=== PATIENT | female | born 1995 | race African-American/Black ===

== ENCOUNTER 2016-12-28 03:57 | Outpatient (CLI) | payer OTHER, MEDICAID | END 2016-12-28 03:58 | disposition critical access hospital (66) | LOC: EMS 03:57 | PROVIDERS: ATTEND Surgery | DX: R10.9 Unspecified abdominal pain (principal) | CPT/HCPCS: A0425; A0429 ==

== ENCOUNTER 2016-12-28 04:11 | Emergency (ER) | payer OTHER, MEDICAID ==
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
[2016-12-28 05:26] LABS: BASOPHILS # (AUTO) 0.1 10^3/uL (0.0-0.1); BASOPHILS % (AUTO) 0.7 %; EOSINOPHILS % (AUTO) 0.4 %; HCT - HEMATOCRIT 28.7 % (37.0-47.0); HGB - HEMOGLOBIN 9.2 g/dL (12.0-16.0); LYMPHOCYTES # (AUTO) 1.3 10^3/uL (1.5-3.5); LYMPHOCYTES % (AUTO) 12.7 %; MEAN CORPUSCULAR HEMOGLOBIN 26.5 pg (27.0-31.0); MEAN CORPUSCULAR HGB CONC 31.9 g/dL (32.0-36.0); MONOCYTES # (AUTO) 1.5 10^3/uL (0.0-1.0); MONOCYTES % (AUTO) 14.3 %; NEUTROPHILS # (AUTO) 7.5 10^3/uL (1.5-6.6); NEUTROPHILS % (AUTO) 71.9 %; NUCLEATED RED BLOOD CELLS AUTO 0.1 /100WBC; RED BLOOD COUNT 3.46 10^6/uL (4.20-5.40); RED CELL DISTRIBUTION WIDTH 17.3 % (12.0-15.0); UNCORRECTED WHITE BLOOD COUNT 10.4 x10^3/uL; WHITE BLOOD COUNT 10.4 x10^3/uL (4.8-10.8)
[2016-12-28 06:15] LABS: POTASSIUM 3.7 mmol/L (3.5-5.0)
[2016-12-28 06:16] LABS: BILIRUBIN,TOTAL 0.3 mg/dL (0.2-1.0); CALCIUM 8.7 mg/dL (8.5-10.3); CREATININE 0.7 mg/dL (0.4-1.0)
[2016-12-28 06:17] LABS: ALBUMIN/GLOBULIN RATIO 0.9 (1.0-2.2); TOTAL PROTEIN 7.3 g/dL (6.7-8.2)
[2016-12-28] MEDS ORDERED: IOPAMIDOL-300 100 ML VIAL IVP ONE (06:55)
--- NOTE | 2016-12-28 07:24 | XRAY Preliminary Report ---
Exam: XR Forearm RT IMPRESSION: Normal examination. No radiographic evidence for foreign body or other abnormality. [facility] SITE ID: [id number]
--- NOTE | 2016-12-28 07:25 | CT Preliminary Report ---
Exam: CT Abdomen/Pelvis W/ Impression: Normal CT of the abdomen and pelvis. [facility] SITE ID: [id number]
--- NOTE | 2016-12-28 07:26 | XRAY Report ---
EXAM: RIGHT FOREARM RADIOGRAPHY, 2 VIEWS EXAM DATE: 12/28/2016 07:08 AM. CLINICAL HISTORY: 21-year-old female post injury. Assess for foreign body.. COMPARISON: None. TECHNIQUE: Frontal and lateral views including the wrist and elbow. FINDINGS: Bones: Normal. No fractures or bone lesions. Joints: Normal. No effusions or subluxations in the visualized wrist or elbow joints. Soft Tissues: Normal. No soft tissue swelling, radiopaque or radiolucent foreign body. IMPRESSION: Normal examination. No radiographic evidence for foreign body or other abnormality. [facility] Referring Provider Line: [phone] SITE ID: [id number]
--- NOTE | 2016-12-28 07:27 | CT Report ---
EXAM: CT ABDOMEN AND PELVIS EXAM DATE: 12/28/2016 06:58 AM. CLINICAL HISTORY: RLQ pain. COMPARISONS: None. TECHNIQUE: Routine helical CT imaging was performed through the abdomen and pelvis. IV contrast: 100 cc of Isovue-300. Enteric contrast: No. Reconstructions: Coronal and sagittal. In accordance with CT protocol optimization, one or more of the following dose reduction techniques w ere utilized for this exam: automated exposure control, adjustment of mA and/or KV based on patient s ize, or use of iterative reconstructive technique. FINDINGS: The lung bases are without evidence of a mass or infiltrate. The liver, spleen, pancreas, and adrenal glands are normal in appearance. Kidneys are without evidenc e of hydronephrosis or an enhancing mass. The appendix is not clearly identified. There is no CT evid ence of acute appendicitis. No free fluid is identified within the abdomen or pelvis. There are no di lated loops of bowel to suggest the presence of an obstruction. No focal bony lesions are identified. Impression: Normal CT of the abdomen and pelvis. [facility] Referring Provider Line: [phone] SITE ID: [id number]
[2016-12-28 07:44] VITALS: BP 98/66
== END 2016-12-28 08:05 | disposition home or self-care (01) ==
LOC: EDUNIT# → ED 04:11
DX: R10.11 Right upper quadrant pain (principal); F17.200 Nicotine dependence, unspecified, uncomplicated
CPT/HCPCS: 36415; 73090; 74177; 80053; 83690; 84702; 85025; 99283; Q9967

== ENCOUNTER 2021-02-04 23:11 | Emergency (ER) | payer MEDICAID ==
[2021-02-04 23:35] VITALS: BP 125/70
== END 2021-02-04 23:59 | disposition left against medical advice (07) ==
LOC: ED 23:11
DX: Z53.21 Procedure and treatment not carried out due to patient leaving prior to being seen by health care provider (principal)

== ENCOUNTER 2021-02-12 16:35 | Outpatient (CLI) | payer MEDICAID | END 2021-02-12 16:36 | disposition critical access hospital (66) | LOC: EMS 16:35 | DX: S60.511A Abrasion of right hand, initial encounter (principal); S40.812A Abrasion of left upper arm, initial encounter; S40.811A Abrasion of right upper arm, initial encounter; S80.812A Abrasion, left lower leg, initial encounter; S80.811A Abrasion, right lower leg, initial encounter; W26.8XXA Contact with other sharp object(s), not elsewhere classified, initial encounter; Y93.39 Activity, other involving climbing, rappelling and jumping off; R45.89 Other symptoms and signs involving emotional state | CPT/HCPCS: A0425; A0429; A0999 ==

== ENCOUNTER 2021-02-12 17:04 | Emergency (ER) | payer MEDICAID ==
[2021-02-12] MEDS ORDERED: TETANUS/DIPHTHERIA/PERTUSSIS 0.5 ML SYRINGE IM ONE (19:01)
--- NOTE | 2021-02-12 19:07 | ED Physician Documentation ---
History of Present Illness - Stated complaint Stated Complaint: FIT - Chief complaint Chief Complaint: MHE - Additonal information Additional information: 26-year-old female is brought into the emergency department by [facility] for evaluation of fit for confinement. She was brought in anxious hyperventilating and having an apparent panic attack. She does have an avulsion on her right hand that she states was from jumping a chain link fence 3 days ago. Unknown last tetanus Patient reports that her right hand hurts but she does not have pain elsewhere. She is alert and cooperative in the bed. Patient denies any medical problems. Does endorse methamphetamine use yesterday. Denies taking any medications prescribed for her. Review of Systems Constitutional: denies: Fever Eyes: reports: Reviewed and negative Ears: reports: Reviewed and negative Nose: reports: Reviewed and negative Throat: reports: Reviewed and negative Cardiac: reports: Reviewed and negative Respiratory: reports: Reviewed and negative GI: reports: Reviewed and negative : reports: Reviewed and negative Skin: reports: Lesions Musculoskeletal: reports: Reviewed and negative Psychiatric: reports: Anxiety PD PAST MEDICAL HISTORY - Past Medical History Past Medical History: Yes Cardiovascular: None Respiratory: None Endocrine/Autoimmune: None GI: None 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 : None HEENT: None Psych: Anxiety Musculoskeletal: None Derm: None - Past Surgical History Past Surgical History: No - Present Medications Home Medications: Ambulatory Orders Medication Instructions Recorded Confirmed No Known Home Medications 12/28/16 02/04/21 - Allergies Allergies/Adverse Reactions: Allergies Allergy/AdvReac Type Severity Reaction Status Date / Time No Known Drug Allergies Allergy Verified 02/04/21 23:32 - Social History Does the pt smoke?: Yes Smoking Status: Current every day smoker Does the pt drink ETOH?: No Does the pt have substance abuse?: Yes - Immunizations Immunizations are current?: Yes - POLST Patient has POLST: No PD ED PE EXPANDED - General General: Alert, No acute distress - Cardiac Cardiac: Regular Rate, Radial strong equal, Pedal strong equal, Cap refill < 2 sec. No: Murmur Present - Respiratory Respiratory: Clear to ausultation corrie. No: Distress, Labored - Abdomen Abdomen: Normal Bowel sounds. No: Tender to palpation - Extremities Extremities: Right hand (Avulsion injury on the dorsum of right hand over the third and fourth metacarpals. Injury does extend into the subcutaneous tissue. Not amenable to primary closure. No surrounding erythema or swelling. No drainage. Avulsion injury measures 0.5 cm x 3 cm) - Neuro Neuro: Alert and Oriented X 3, CNII-XII intact - GCS Eye Opening: Spontaneous Motor: Obeys Commands Verbal: Oriented Total: 15 - Psych Psych: Normal Results - Vitals Vitals: Vital Signs - 24 hr 02/12/21 17:17 Temperature 37.2 C Heart Rate 107 H Respiratory 34 H Rate Blood Pressure 114/63 O2 Saturation 100 Oxygen O2 Source Room air PD MEDICAL DECISION MAKING - ED course Complexity details: d/w patient ED course: 26-year-old female presented to the emergency department for fit for confinement. She arrived with [place] [employer] and was having a panic attack on arrival. However after about 90 minutes in the ER and no medical intervention she is now alert calm cooperative and oriented. Her clinical exam is unremarkable with the exception of the avulsion injury on her right hand. I have recommended bacitracin ointment. Tetanus was updated today in the ER. I have medically cleared her for assisted. Departure - Departure Disposition: 01 Home, Self Care Clinical Impression: Panic attack as reaction to stress Avulsion of skin of right hand Qualifiers: Encounter type: initial encounter Qualified Code(s): S61.401A - Unspecified open wound of right hand, initial encounter Condition: Stable Record reviewed to determine appropriate education?: Yes Comments: Neisha I wish you well in your journey. You are fit for confinement at [facility]. Please wash your hands with warm soap and water twice daily please ask the assisted staff to apply antibiotic ointment to your hand avulsion.
[2021-02-12 19:20] VITALS: BP 111/85
== END 2021-02-12 19:26 | disposition home or self-care (01) ==
LOC: EDUNIT# → ED 17:04
DX: S61.401A Unspecified open wound of right hand, initial encounter (principal); W26.8XXA Contact with other sharp object(s), not elsewhere classified, initial encounter; Y93.39 Activity, other involving climbing, rappelling and jumping off; F43.9 Reaction to severe stress, unspecified; Z23 Encounter for immunization
CPT/HCPCS: 90471; 99282; 99283

== ENCOUNTER 2021-02-23 08:43 | Outpatient (CLI) | payer MEDICAID ==
[2021-02-23 08:59] LABS: BILIRUBIN,URINE NEGATIVE (NEGATIVE); CLARITY,URINE CLEAR (CLEAR); GLUCOSE, URINE (UA) NEGATIVE (NEGATIVE); KETONES,URINE (UA) NEGATIVE (NEGATIVE); LEUKOCYTE ESTERASE, URINE SMALL (NEGATIVE); NITRITE,URINE NEGATIVE (NEGATIVE); OCCULT BLOOD,URINE NEGATIVE (NEGATIVE); PROTEIN,URINE NEGATIVE (NEGATIVE); UROBILINOGEN,URINE 0.2 (NORMAL) E.U./dL (NORMAL)
[2021-02-23 09:31] LABS: BACTERIA,URINE Few /HPF (None Seen); RBC,URINE 0-5 /HPF (0-5); SQUAMOUS EPITHELIAL CELL,UR MOD Squamous (<= Few)
[2021-02-23 22:22] LABS: CHLAMYDIA TRACHOMATIS DNA NEGATIVE (NEGATIVE); NEISSERIA GONORRHOEAE DNA NEGATIVE (NEGATIVE); TRICHOMONAS VAGINALIS DNA NEGATIVE (NEGATIVE)
== END 2021-02-23 08:44 | disposition home or self-care (01) ==
LOC: LAB.R 08:43
PROVIDERS: ATTEND Registered Nurse
DX: R82.79 Other abnormal findings on microbiological examination of urine (principal); Z11.3 Encounter for screening for infections with a predominantly sexual mode of transmission
CPT/HCPCS: 81001; 87086; 87491; 87591; 87661

== ENCOUNTER 2022-12-26 08:00 | Outpatient (CLI) | payer MEDICAID ==
[2022-12-26 18:01] LABS: CHLAMYDIA TRACHOMATIS DNA NEGATIVE (NEGATIVE); TRICHOMONAS VAGINALIS DNA POSITIVE (NEGATIVE)
[2022-12-26 18:02] LABS: NEISSERIA GONORRHOEAE DNA NEGATIVE (NEGATIVE)
== END 2022-12-26 23:59 | disposition home or self-care (01) ==
LOC: LAB.N 08:00
PROVIDERS: ATTEND Physician Assistant Medical
DX: Z20.2 Contact with and (suspected) exposure to infections with a predominantly sexual mode of transmission (principal)
CPT/HCPCS: 87491; 87591; 87661

== ENCOUNTER 2023-01-13 16:45 | Outpatient (CLI) | payer MEDICAID ==
[2023-01-14 02:07] LABS: CHLAMYDIA TRACHOMATIS DNA NEGATIVE (NEGATIVE); NEISSERIA GONORRHOEAE DNA NEGATIVE (NEGATIVE); TRICHOMONAS VAGINALIS DNA NEGATIVE (NEGATIVE)
== END 2023-01-13 17:00 | disposition home or self-care (01) ==
LOC: LAB.N 16:45
PROVIDERS: ATTEND Emergency Medicine
DX: Z20.2 Contact with and (suspected) exposure to infections with a predominantly sexual mode of transmission (principal)
CPT/HCPCS: 87491; 87591; 87661

== ENCOUNTER 2023-03-10 14:15 | Outpatient (CLI) | payer MEDICAID ==
[2023-03-10 20:56] LABS: BACTERIAL VAGINOSIS DNA POSITIVE (NEGATIVE); CANDIDA GLABRATA DNA NEGATIVE (NEGATIVE); CANDIDA GROUP DNA POSITIVE (NEGATIVE); CANDIDA KRUSEI DNA NEGATIVE (NEGATIVE); TRICHOMONAS VAGINALIS DNA NEGATIVE (NEGATIVE)
[2023-03-10 22:25] LABS: CHLAMYDIA TRACHOMATIS DNA NEGATIVE (NEGATIVE); NEISSERIA GONORRHOEAE DNA NEGATIVE (NEGATIVE)
== END 2023-03-10 14:30 | disposition home or self-care (01) ==
LOC: LAB.N 14:15
PROVIDERS: ATTEND Physician Assistant Medical
DX: N89.8 Other specified noninflammatory disorders of vagina (principal)
CPT/HCPCS: 81514; 87491; 87591; 87661

== ENCOUNTER 2023-04-21 08:00 | Outpatient (CLI) | payer MEDICAID ==
[2023-04-21 18:00] LABS: BASOPHILS % (AUTO) 0.5 %; EOSINOPHILS % (AUTO) 0.3 %; HCT - HEMATOCRIT 39.2 % (37.0-47.0); HGB - HEMOGLOBIN 12.3 g/dL (12.0-16.0); LYMPHOCYTES # (AUTO) 1.4 10^3/uL (1.5-3.5); LYMPHOCYTES % (AUTO) 24.2 %; MEAN CORPUSCULAR HEMOGLOBIN 29.2 pg (27.0-31.0); MEAN CORPUSCULAR HGB CONC 31.4 g/dL (32.0-36.0); MEAN CORPUSCULAR VOLUME 93.1 fL (81.0-99.0); MEAN PLATELET VOLUME 11.5 fL (7.9-10.8); MONOCYTES # (AUTO) 0.6 10^3/uL (0.0-1.0); MONOCYTES % (AUTO) 10.8 %; NEUTROPHILS # (AUTO) 3.7 10^3/uL (1.5-6.6); PLT - PLATELET COUNT 350 10^3/uL (130-450); RED BLOOD COUNT 4.21 10^6/uL (4.20-5.40); RED CELL DISTRIBUTION WIDTH 15.9 % (12.0-15.0); WHITE BLOOD COUNT 5.8 x10^3/uL (4.8-10.8)
[2023-04-21 18:21] LABS: ALBUMIN/GLOBULIN RATIO 1.7 (1.0-2.2); BILIRUBIN,TOTAL 1.1 mg/dL (0.2-1.0); CALCIUM 9.7 mg/dL (8.5-10.3); CREATININE 0.7 mg/dL (0.6-1.3); POTASSIUM 3.4 mmol/L (3.5-4.5)
[2023-04-21 18:24] LABS: THYROID STIMULATING HORMONE 0.41 uIU/mL (0.34-5.60)
[2023-04-21 22:24] LABS: CHLAMYDIA TRACHOMATIS DNA NEGATIVE (NEGATIVE); NEISSERIA GONORRHOEAE DNA NEGATIVE (NEGATIVE); TRICHOMONAS VAGINALIS DNA NEGATIVE (NEGATIVE)
[2023-04-25 01:08] LABS: HIV SCREEN 4TH GENERATION Non Reactive (Non Reactive)
[2023-04-25 05:12] LABS: RPR Non Reactive (Non Reactive)
== END 2023-04-21 23:59 | disposition home or self-care (01) ==
LOC: LAB.N 08:00
PROVIDERS: ATTEND Registered Nurse
DX: Z71.89 Other specified counseling (principal)
CPT/HCPCS: 36415; 80053; 84443; 84702; 85025; 86592; 87389; 87491; 87591; 87661

== ENCOUNTER 2023-06-02 08:00 | Outpatient (CLI) | payer MEDICAID ==
[2023-06-02 12:07] LABS: BILIRUBIN,URINE NEGATIVE (NEGATIVE); GLUCOSE, URINE (UA) NEGATIVE (NEGATIVE); KETONES,URINE (UA) NEGATIVE (NEGATIVE); LEUKOCYTE ESTERASE, URINE MODERATE (NEGATIVE); NITRITE,URINE NEGATIVE (NEGATIVE); OCCULT BLOOD,URINE NEGATIVE (NEGATIVE); PH,URINE 6.5 PH (5.0-7.5); PROTEIN,URINE NEGATIVE (NEGATIVE); UROBILINOGEN,URINE 0.2 (NORMAL) E.U./dL (NORMAL)
[2023-06-02 12:15] LABS: BACTERIA,URINE Moderate /HPF (None Seen); CLARITY,URINE HAZY (CLEAR); RBC,URINE None Seen /HPF (0-5); SQUAMOUS EPITHELIAL CELL,UR MOD Squamous (<= Few)
[2023-06-02 12:17] LABS: AMPHETAMINE SCREEN,URINE NEGATIVE (NEGATIVE); BARBITURATE SCREEN,UR NEGATIVE (NEGATIVE); BENZODIAZEPINES SCREEN, URINE NEGATIVE (NEGATIVE); COCAINE SCREEN URINE NEGATIVE (NEGATIVE); METHADONE SCREEN, URINE NEGATIVE (NEGATIVE); METHAMPHETAMINES SCREEN, URINE NEGATIVE (NEGATIVE); MUDS CUTOFF CONCENTRATIONS CUTOFF CONC BELOW:; OPIATE SCREEN, URINE NEGATIVE (NEGATIVE); OXYCODONE SCREEN, URINE NEGATIVE (NEGATIVE); PROPOXYPHENE SCREEN, URINE NEGATIVE (NEGATIVE); THC CANNABINOID SCREEN, URINE NEGATIVE (NEGATIVE); TRICYCLIC ANTIDEPRESSANT,URINE NEGATIVE (NEGATIVE)
== END 2023-06-02 23:59 | disposition home or self-care (01) ==
LOC: LAB.WC 08:00
PROVIDERS: ATTEND Obstetrics & Gynecology
DX: Z34.80 Encounter for supervision of other normal pregnancy, unspecified trimester (principal); F19.11 Other psychoactive substance abuse, in remission
CPT/HCPCS: 80306; 81001; 87086

== ENCOUNTER 2023-06-07 12:56 | Outpatient (CLI) | payer MEDICAID ==
--- NOTE | 2023-06-08 11:17 | Ultrasound Report ---
PROCEDURE: OB First Trimester w/TV INDICATIONS: POSITIVE TEST OUTSIDE/PRIOR DATING DATA: Last menstrual period (LMP): Unknown. LMP-based estimated date of delivery (MARIANNE): Not applicable. First dating scan (date and location): 06/07/2023. Estimated date of delivery (MARIANNE) from first dating scan: 12/15/2023. TECHNIQUE: Real-time scanning was performed of the fetus and maternal pelvic organs, with image documentation. Endovaginal scanning was also performed to better visualize the fetus and maternal ovaries. COMPARISON: None. FINDINGS: Single living intrauterine gestation is visualized. Embryo: Single living intrauterine gestation with estimated sonographic gestational age of approxima tely 12 weeks and 5 days based off crown-rump length measurement of approximately 6.29 cm. Heart rate: 150 bpm. Other: No perigestational fluid collection. Measurement variability in dating: +/- 4 weeks by LMP, +/- 7 days by mean sac diameter (use before 6 weeks gestation if crown-rump length not able to be measured), +/- 5 days by crown-rump length (6-12 weeks gestation). Maternal organs: Ovaries appear within normal limits. Maternal cervical length measures 6.6 cm. IMPRESSION: Single living intrauterine gestation with estimated sonographic gestational age of approximately 12 w eeks and 5 days with estimated date of delivery of approximately 12/15/2023. Recommend clinical surveillance and follow-up routine second trimester anatomy screening survey . Reviewed by: Yahir Joy MD on 06/08/2023 11:16 AM PDT Approved by: Yahir Joy MD on 06/08/2023 11:16 AM PDT Station ID: [id number]
== END 2023-06-07 12:57 | disposition home or self-care (01) ==
LOC: DI 12:56
PROVIDERS: ATTEND Obstetrics & Gynecology
DX: Z34.80 Encounter for supervision of other normal pregnancy, unspecified trimester (principal)

== ENCOUNTER 2023-06-13 08:00 | Outpatient (CLI) | payer MEDICAID ==
[2023-06-13 20:34] LABS: CHLAMYDIA TRACHOMATIS DNA NEGATIVE (NEGATIVE); NEISSERIA GONORRHOEAE DNA NEGATIVE (NEGATIVE); TRICHOMONAS VAGINALIS DNA NEGATIVE (NEGATIVE)
== END 2023-06-13 23:59 | disposition home or self-care (01) ==
LOC: LAB.WC 08:00
PROVIDERS: ATTEND Nurse Practitioner
DX: Z20.2 Contact with and (suspected) exposure to infections with a predominantly sexual mode of transmission (principal)
CPT/HCPCS: 87491; 87591; 87661

== ENCOUNTER 2023-06-21 10:42 | Outpatient (CLI) | payer MEDICAID ==
[2023-06-21 11:22] LABS: BASOPHILS % (AUTO) 0.4 %; EOSINOPHILS # (AUTO) 0.1 10^3/uL (0.0-0.7); EOSINOPHILS % (AUTO) 0.7 %; HCT - HEMATOCRIT 39.6 % (37.0-47.0); HGB - HEMOGLOBIN 12.4 g/dL (12.0-16.0); LYMPHOCYTES # (AUTO) 1.3 10^3/uL (1.5-3.5); LYMPHOCYTES % (AUTO) 17.4 %; MEAN CORPUSCULAR HEMOGLOBIN 29.4 pg (27.0-31.0); MEAN CORPUSCULAR HGB CONC 31.3 g/dL (32.0-36.0); MEAN CORPUSCULAR VOLUME 93.8 fL (81.0-99.0); MEAN PLATELET VOLUME 10.6 fL (7.9-10.8); MONOCYTES # (AUTO) 0.9 10^3/uL (0.0-1.0); MONOCYTES % (AUTO) 11.9 %; NEUTROPHILS # (AUTO) 5.2 10^3/uL (1.5-6.6); NEUTROPHILS % (AUTO) 69.2 %; PLT - PLATELET COUNT 293 10^3/uL (130-450); RED BLOOD COUNT 4.22 10^6/uL (4.20-5.40); RED CELL DISTRIBUTION WIDTH 13.7 % (12.0-15.0); WHITE BLOOD COUNT 7.5 x10^3/uL (4.8-10.8)
[2023-06-22 05:14] LABS: RPR Non Reactive (Non Reactive)
[2023-06-22 07:10] LABS: HBsAG SCREEN Negative (Negative)
[2023-06-22 08:10] LABS: VARICELLA-ZOSTER AB IGG <135 index (Immune >165)
[2023-06-22 09:10] LABS: HIV SCREEN 4TH GENERATION Non Reactive (Non Reactive)
[2023-06-22 21:07] LABS: HCV AB Non Reactive (Non Reactive)
== END 2023-06-21 10:43 | disposition home or self-care (01) ==
LOC: LAB 10:42
PROVIDERS: ATTEND Nurse Practitioner
DX: Z34.80 Encounter for supervision of other normal pregnancy, unspecified trimester (principal); Z36.89 Encounter for other specified antenatal screening
CPT/HCPCS: 36415; 85025; 86592; 86762; 86787; 86803; 86850; 86900; 86901; 87340; 87389

== ENCOUNTER 2023-07-31 13:07 | Outpatient (CLI) | payer MEDICAID ==
--- NOTE | 2023-07-31 18:17 | Ultrasound Report ---
PROCEDURE: OB Detailed Eval INDICATIONS: SUPERVISON OF OUTSIDE/PRIOR DATING DATA: Last menstrual period (LMP): Unknown. LMP-based estimated date of delivery (MARIANNE): Unknown. First dating scan (date and location): 06/07/2023. Estimated date of delivery (MARIANNE) from first dating scan: 12/15/2023. The below data below was generated using the ultrasound MARIANNE of 12/15/2023 TECHNIQUE: Real-time scanning was performed of the fetus, with image documentation and biometric measurements. Endovaginal scanning: Not performed. COMPARISON: 06/07/2023 FINDINGS: General: A single living intrauterine gestation is present. Presentation: Breech Placenta: Placental position is posterior, without previa. Amniotic fluid index: 12.1 cm, within normal limits for gestational age. heart rate: 160 beats per minute. Maternal cervical canal: 3.7 cm long; normal length is 2.5 cm or more. biometrics: Biparietal diameter: 4.4 cm, 19 weeks 2 days, 9th percentile Head circumference: 16.6 cm, 19 weeks 2 days, 5th percentile Abdominal circumference: 14.2 cm, 19 weeks 4 days, 17th percentile Femur length: 3.0 cm, 19 weeks 2 days, 11th percentile Estimated gestational age from initial scan: 20 weeks 3 days Composite gestational age from present scan: 19 weeks 3 days Estimated weight and percentile: 291 g, 17th percentile Measurement variability in biometric dating: +/- 10 days from 12-20 weeks gestation, +/- 2 weeks from 20-30 weeks gestation, +/- 3 weeks at 30 weeks gestation or later. Anatomic survey: Neuro: Ventricles are normal at less than 10 mm. Cisterna magna is normal at 3-11 mm. Cerebellum i s normal in size and morphology. Nuchal skin fold: Normal at less than 6 mm between 14 and 20 weeks gestational age. Face: Nose and lips, facial profile are normal. Spine: No evidence for spina bifida. Heart: 4-chambered heart is present, with normal ventricular outflow tracts. Diaphragm: Diaphragm is intact. Stomach: Left-sided stomach is present. Kidneys: No hydronephrosis. Normal is less than 5 mm in 2nd trimester, less than 7 mm in 3rd trimester. Cord: 3 vessel cord has orthotopic insertion. Bladder: Normal in size. Extremities: All 4 extremities are visualized. IMPRESSION: 1. Living second trimester intrauterine . 2. EFW is 7th percentile based on comparison to the initial first trimester ultrasound. 3. Normal second trimester anatomy. Comment: Consider follow-up imaging to document appropriate interval future growth. Reviewed by: Pascual Barnes MD on 07/31/2023 6:16 PM PST Approved by: Pascual Barnes MD on 07/31/2023 6:16 PM PST Station ID: [id number]
== END 2023-07-31 13:08 | disposition home or self-care (01) ==
LOC: DI 13:07
PROVIDERS: ATTEND Obstetrics & Gynecology
DX: O09.892 Supervision of other high risk pregnancies, second trimester (principal); Z3A.19 19 weeks gestation of pregnancy

== ENCOUNTER 2023-08-26 16:59 | Emergency (ER) | payer MEDICAID ==
[2023-08-26 17:07] VITALS: BP 129/71; O2SAT 98
--- NOTE | 2023-08-26 17:21 | ED Physician Documentation ---
History of Present Illness - Stated complaint Stated Complaint: JONES/COUGH/CONGESTION - Chief complaint Chief Complaint: General - History obtained from History obtained from: Patient - History of Present Illness Pain level max: 3 Pain level now: 3 - Additonal information Additional information: Patient is a 28-year-old female who has had a cough, congestion and bodyaches for the past 5 days. She was seen at the walk-in clinic and had a negative strep test. Has not taken a home COVID test. No fevers. No chills. Nothing makes it better or worse. She states she is currently 25 weeks . No vaginal bleeding or discharge. No abdominal pain or cramping. No pelvic pain. The cough is dry. No wheezing. No stridor. She states she quit smoking 4 days ago. Review of Systems Constitutional: denies: Fever, Chills Ears: denies: Ear pain Nose: reports: Rhinorrhea / runny nose, Congestion Cardiac: denies: Palpitations Respiratory: reports: Cough. 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 : None HEENT: None Psych: Anxiety Musculoskeletal: None Derm: None - Past Surgical History Past Surgical History: No - Present Medications Home Medications: Ambulatory Orders Medication Instructions Recorded Confirmed Acetaminophen [Tylenol] 650 mg PO Q8H PRN #30 tab 08/26/23 - Allergies Allergies/Adverse Reactions: Allergies Allergy/AdvReac Type Severity Reaction Status Date / Time No Known Drug Allergies Allergy Verified 08/26/23 17:02 - Social History Does the pt smoke?: Yes Smoking Status: Current every day smoker Does the pt drink ETOH?: No Does the pt have substance abuse?: Yes - Immunizations Immunizations are current?: Yes - POLST Patient has POLST: No PD ED PE NORMAL - Vitals Vital signs reviewed: Yes - General General: Alert and oriented X 3, No acute distress - HEENT HEENT: Ears normal, Moist mucous membranes, Pharynx benign - Neck Neck: Supple, no meningeal sign - Cardiac Cardiac: RRR, Strong equal pulses - Respiratory Respiratory: No respiratory distress, Clear bilaterally - Abdomen Abdomen: Soft, Non tender, Non distended - Derm Derm: Warm and dry, No rash - Extremities Extremities: No edema - Neuro Neuro: Alert and oriented X 3 - Psych Psych: Normal mood, Normal affect Results - Vitals Vitals: Vital Signs - 24 hr 08/26/23 17:02 Temperature 37.3 C Heart Rate 88 Respiratory 16 Rate Blood Pressure 129/71 O2 Saturation 98 Oxygen O2 Source Room air - Labs Labs: Laboratory Tests 08/26/23 17:00 Nasal Adenovirus (PCR) NOT DETECTED Nasal B. parapertussis DNA (PCR) NOT DETECTED Nasal Coronavir 229E PCR NOT DETECTED Nasal Coronavir HKU1 PCR NOT DETECTED Nasal Coronavir NL63 PCR NOT DETECTED Nasal Coronavir OC43 PCR NOT DETECTED Nasal Enterovir/Rhinovir PCR DETECTED A Nasal Influenza B PCR NOT DETECTED Nasal Influenza A PCR NOT DETECTED Nasal Parainfluen 1 PCR NOT DETECTED Nasal Parainfluen 2 PCR NOT DETECTED Nasal Parainfluen 3 PCR NOT DETECTED Nasal Parainfluen 4 PCR NOT DETECTED Nasal RSV (PCR) NOT DETECTED Nasal B.pertussis DNA PCR NOT DETECTED Nasal C.pneumoniae (PCR) NOT DETECTED Charlie Human Metapneumo PCR NOT DETECTED Nasal M.pneumoniae (PCR) NOT DETECTED Nasal SARS-CoV-2 (PCR) NOT DETECTED PD Medical Decision Making - ED course Complexity details: reviewed results, re-evaluated patient, considered differential, d/w patient ED course: 28-year-old female, well-appearing, nontoxic. Afebrile. No hypoxia. No respiratory distress. Lungs clear to auscultation bilaterally. Appears to have a viral upper respiratory infection. Will continue supportive care. The patient will follow-up with the results of her respiratory PCR on the patient portal, or I will attempt to call her with the results when they return. Patient counseled regarding signs and symptoms for which I believe and urgent re-evaluation would be necessary. Patient with good understanding of and agreement to plan and is comfortable going home at this time This document was made in part using voice recognition software. While efforts are made to proofread this document, sound alike and grammatical errors may o ccur. Patient is 25 weeks , but does not have any abdominal pain, pelvic pain, vaginal bleeding, cramping or back pain. Departure - Departure Disposition: Home, Self Care Clinical Impression: Rhinovirus URI (upper respiratory infection) Qualifiers: URI type: unspecified viral URI Qualified Code(s): J06.9 - Acute upper respiratory infection, unspecified Condition: Good Instructions: ED URI Viral Follow-Up: Antonella Hutchinson ARNP [Primary Care Provider] - Within 1 week Prescriptions: Acetaminophen [Tylenol] 650 mg PO Q8H PRN #30 tab PRN Reason: Pain Comments: You appear to have a viral upper respiratory infection today. Please follow-up with your doctor for further care. Please return if you worsen including trouble breathing or other worsening symptoms. You can use Tylenol at home for any body aches. You can check the results of your respiratory swab on the patient portal, otherwise I will call you with the results later tonight. Your prescription was sent to [facility] in [place]. Forms: PCP List Discharge Date/Time: 08/26/23 17:28
[2023-08-26 18:02] LABS: B. PARAPERTUSSIS- RESP PCR PAN NOT DETECTED; B. PERTUSSIS- RESP PCR PANEL NOT DETECTED; C. PNEUMONIAE- RESP PCR PANEL NOT DETECTED; CORONAVIRUS 229E-RESP PCR NOT DETECTED; CORONAVIRUS HKU1-RESP PCR NOT DETECTED; CORONAVIRUS NL63-RESP PCR NOT DETECTED; CORONAVIRUS OC43-RESP PCR NOT DETECTED; HUMAN METAPNEUMOVIRUS NOT DETECTED; INFLUENZA A- RESP PCR PANEL NOT DETECTED; INFLUENZA B - RESP PCR PANEL NOT DETECTED; M. PNEUMONIAE- RESP PCR PANEL NOT DETECTED; PARAINFLUENZA VIRUS 1 NOT DETECTED; PARAINFLUENZA VIRUS 2 NOT DETECTED; PARAINFLUENZA VIRUS 3 NOT DETECTED; PARAINFLUENZA VIRUS 4 NOT DETECTED; RHINOVIRUS/ENTEROVIRUS DETECTED; RSV- RESP PCR PANEL NOT DETECTED; SARS-CoV-2 -RESP PCR PANEL NOT DETECTED
== END 2023-08-26 17:28 | disposition home or self-care (01) ==
LOC: ED 16:59
DX: O99.512 Diseases of the respiratory system complicating pregnancy, second trimester (principal); J06.9 Acute upper respiratory infection, unspecified; O99.332 Smoking (tobacco) complicating pregnancy, second trimester; Z3A.25 25 weeks gestation of pregnancy
CPT/HCPCS: 87633; 99283

== ENCOUNTER 2023-09-22 15:36 | Outpatient (CLI) | payer MEDICAID ==
--- NOTE | 2023-09-22 18:13 | Ultrasound Report ---
PROCEDURE: OB Follow up INDICATIONS: INTRUTERINE GROWTH RESTRICTION OUTSIDE/PRIOR DATING DATA: Last menstrual period (LMP): Unsure. LMP-based estimated date of delivery (MARIANNE): Unknown. First dating scan (date and location): 06/07/2023. Estimated date of delivery (MARIANNE) from first dating scan: 12/15/2023. The below data below was generated using the working MARIANNE of 12/15/2023 TECHNIQUE: Real-time scanning was performed of the fetus, with image documentation and biometric measurements. Endovaginal scanning: Not performed. COMPARISON: 06/07/2023, 07/31/2023. FINDINGS: General: A single living intrauterine gestation is present. Presentation: Breech Placenta: Placental position is posterior, without previa. Amniotic fluid index: 16.8 cm, within normal limits for gestational age. heart rate: 150 beats per minute. Maternal cervical canal: 5 cm long; normal length is 2.5 cm or more. biometrics: Biparietal diameter: 6.7 cm, 27 weeks, 0 day, 11.3% Head circumference: 25.49 cm, 27 weeks, 5 days, 13.2% Abdominal circumference: 22.4 cm, 26 weeks, 6 days, 12.2% Femur length: 4.75 cm, 25 weeks, 6 days, 1.7% Estimated gestational age from initial scan: 28 weeks, 0 day Composite gestational age from present scan: 26 weeks, 6 days Estimated weight and percentile: 954.6 g, 4.8% Measurement variability in biometric dating: +/- 10 days from 12-20 weeks gestation, +/- 2 weeks from 20-30 weeks gestation, +/- 3 weeks at 30 weeks gestation or more. Other: Umbilical cord as the ratio measures 2.79, 3.29 and 5.47@abdominal insertion IMPRESSION: 1. Single live intrauterine gestation with fetus in breech presentation. heart rate is 150 bpm. Normal amount of amniotic fluid. TACHO equals 16.8 cm. 2. Estimated weight is 4.8% consistent with patient's history of IUGR. 3. Elevated umbilical artery S/D ratio at its abdominal insertion and measures 5.47. Reviewed by: Maxwell Nova MD on 09/22/2023 6:12 PM PST Approved by: Maxwell Nova MD on 09/22/2023 6:12 PM PST Station ID: [id number]
== END 2023-09-22 15:37 | disposition home or self-care (01) ==
LOC: DI 15:36
PROVIDERS: ATTEND Obstetrics & Gynecology
DX: O36.5920 Maternal care for other known or suspected poor fetal growth, second trimester, not applicable or unspecified (principal); O32.1XX0 Maternal care for breech presentation, not applicable or unspecified; O35.8XX0 Maternal care for other (suspected) fetal abnormality and damage, not applicable or unspecified; Z3A.26 26 weeks gestation of pregnancy

== ENCOUNTER 2023-10-03 12:37 | Outpatient (CLI) | payer MEDICAID ==
[2023-10-03 14:36] VITALS: BP 125/68
--- NOTE | 2023-10-03 17:04 | PROCEDURE REPORT ---
- HPI Current EDU 12/15/23 Gestation 29 Weeks and 4 Days 3 Para 2 Vital Signs Temperature 98.2 F 10/03/23 12:57 Heart Rate 87 10/03/23 12:57 Respiratory Rate 18 10/03/23 12:57 Blood Pressure 125/68 10/03/23 12:57 Temperature 98.2 F 10/03/23 12:57 Heart Rate 87 10/03/23 12:57 Respiratory Rate 18 10/03/23 12:57 Blood Pressure 125/68 10/03/23 12:57 O2 Saturation If not protocol: Oxygen Flow, liters/minute - NST Procedure NST Procedure Start Date 10/03/23 Start Time 13:40 Stop Time 14:11 Vibroacoustic Stimulation Used No Patient States Movement Yes - Results and Plan Plan: Patient is a 28-year-old -0-0-2 at 29 weeks gestation here for NST. NST Performed 10/03/2023 NST Read 10/03/2023 FHT: 140 bpm baseline, moderate variability, accelerations present, no decelerations. Reactive NST [place]: Quiescent Diagnosis 29 weeks gestation IUGR Continue with scheduled NST.
== END 2023-10-03 14:20 | disposition home or self-care (01) ==
LOC: WFO 12:37 → FBP 12:40 → WFO 14:20
PROVIDERS: ATTEND Obstetrics & Gynecology
DX: O36.5930 Maternal care for other known or suspected poor fetal growth, third trimester, not applicable or unspecified (principal); O09.293 Supervision of pregnancy with other poor reproductive or obstetric history, third trimester; Z3A.29 29 weeks gestation of pregnancy
CPT/HCPCS: 36415; 59025; 82950; 85027

== ENCOUNTER 2023-10-06 12:40 | Outpatient (CLI) | payer MEDICAID ==
[2023-10-06 13:39] LABS: ALBUMIN 3.8 g/dL (3.2-5.5); ALBUMIN/GLOBULIN RATIO 1.3 (1.0-2.2); BILIRUBIN,TOTAL 0.2 mg/dL (0.2-1.0); CALCIUM 9.4 mg/dL (8.5-10.3); CREATININE 0.5 mg/dL (0.6-1.3); POTASSIUM 3.7 mmol/L (3.5-4.5); TOTAL PROTEIN 6.7 g/dL (6.4-8.9)
== END 2023-10-06 12:41 | disposition home or self-care (01) ==
LOC: LAB 12:40
PROVIDERS: ATTEND Nurse Practitioner
DX: O36.5930 Maternal care for other known or suspected poor fetal growth, third trimester, not applicable or unspecified (principal)
CPT/HCPCS: 36415; 80053; 82239

== ENCOUNTER 2023-10-06 12:42 | Outpatient (CLI) | payer MEDICAID ==
[2023-10-06 13:30] VITALS: BP 106/69
--- NOTE | 2023-10-06 13:42 | PHARMACY PROGRESS NOTE ---
- Best Possible Medication History Admit Date and Time: Processed by: Pharmacy Medications reviewed in ED?: No Medication History completed: Yes Patient Interview: Pt unable to participate Secondary Source(s): Insurance records As the person ultimately responsible for medication therapy, providers are able to order a medication from an existing home medication list in [facility] via the "Reconcile Routine" prior to Confirmation of that medication by business support assistant. Such practice is discouraged except when the physician, in their clinical judgment, deems that a medical need exists for a medication without regard to p revious use.
--- NOTE | 2023-10-06 16:53 | PROCEDURE REPORT ---
- HPI Diagnosis/Indication for NST: Intrauterine growth restriction Current EDU 12/15/23 Gestation 30 Weeks and 0 Days 3 Para 2 Vital Signs Temperature 97.7 F 10/06/23 13:21 Heart Rate 88 10/06/23 13:21 Respiratory Rate 16 10/06/23 13:21 Blood Pressure 106/69 10/06/23 13:21 Temperature 97.7 F 10/06/23 13:21 Heart Rate 88 10/06/23 13:21 Respiratory Rate 16 10/06/23 13:21 Blood Pressure 106/69 10/06/23 13:21 O2 Saturation If not protocol: Oxygen Flow, liters/minute - NST Procedure NST Procedure Start Date 10/06/23 Start Time 13:18 Stop Time 13:51 Vibroacoustic Stimulation Used Yes Patient States Movement Yes - Results and Plan Plan: Patient is a 28-year-old -0-0-2 at 30 weeks 0 days gestation here for NST. NST Performed 10/06/2023 NST Read 10/06/2023 FHT: 145 bpm baseline, moderate variability, accelerations present, no decelerations. Reactive NST [place]: Quiescent Diagnosis 30 weeks gestation IUGR Continue with scheduled OB care
== END 2023-10-06 13:55 | disposition home or self-care (01) ==
LOC: WFO 12:42 → FBP 13:02 → WFO 13:55
PROVIDERS: ATTEND Obstetrics & Gynecology
DX: O36.5930 Maternal care for other known or suspected poor fetal growth, third trimester, not applicable or unspecified (principal); Z3A.30 30 weeks gestation of pregnancy
CPT/HCPCS: 36415; 59025; 80053; 82239

== ENCOUNTER 2023-10-06 13:59 | Outpatient (CLI) | payer MEDICAID ==
--- NOTE | 2023-10-06 17:08 | Ultrasound Report ---
PROCEDURE: OB Biophysical Profile INDICATIONS: GROWTH RESTRICTIONS OUTSIDE/PRIOR DATING DATA: Last menstrual period (LMP): Unsure. LMP-based estimated date of delivery (MARIANNE): Not applicable. First dating scan (date and location): 06/07/2023. Estimated date of delivery (AMRIANNE) from first dating scan: 12/15/2023. The below data below was generated using the ultrasound MARIANNE of 12/15/2023 TECHNIQUE: Real-time scanning was performed of the fetus, with image documentation and biometric nicol surements. Biophysical profile was also obtained. Endovaginal scanning: Not performed COMPARISON: None. FINDINGS: General: A single living intrauterine gestation is present. Presentation: Breech Placenta: Placental position is posterior, without previa. Amniotic fluid index: 16.8 cm, normal for gestational age. heart rate: 150 beats per minute. Maternal cervical canal: 5 cm long; normal length is 2.5 cm or more. biometrics: Biparietal diameter: 6.7 cm, 27 weeks 0 days, 11.3 percentile Head circumference: 25.5 cm, 27 weeks 5 days, 13.2 percentile Abdominal circumference: 22.4 cm, 26 weeks 6 days, 12.2 percentile Femur length: 4.75 cm, 25 weeks 6 days, 1.7 percentile Estimated gestational age from initial scan: 28 weeks 0 days. Composite gestational age from present scan: 26 weeks 6 days Estimated weight and percentile: 954 g, fifth percentile Measurement variability in biometric dating: +/- 10 days from 12-20 weeks gestation, +/- 2 weeks from 20-30 weeks gestation, +/- 3 weeks at 30 weeks gestation or later. Umbilical artery Doppler: Normal waveform. SD ratio ranges 2.8 through 5.5. IMPRESSION: Single living intrauterine at 28 weeks 0 days, MARIANNE of 12/15/2023. Estimated weight of 954 g, 5th percentile Normal umbilical artery waveforms. SD ratio ranges 2.8-5.5. Reviewed by: Sunny Hill MD on 10/06/2023 5:07 PM PST Approved by: Sunny Hill MD on 10/06/2023 5:07 PM PST Station ID: [id number]
== END 2023-10-06 14:00 | disposition home or self-care (01) ==
LOC: DI 13:59
PROVIDERS: ATTEND Obstetrics & Gynecology
DX: O36.5930 Maternal care for other known or suspected poor fetal growth, third trimester, not applicable or unspecified (principal); Z3A.28 28 weeks gestation of pregnancy

== ENCOUNTER 2023-10-12 14:07 | Outpatient (CLI) | payer MEDICAID ==
[2023-10-12 14:27] VITALS: BP 123/61
--- NOTE | 2023-10-12 14:42 | PROVIDER PROGRESS NOTE ---
- HPI Chief Complaint: Decreased movement Current : Current EDU 12/15/23 Gestation 30 Weeks and 6 Days 3 Para 2 Vital Signs Temperature 98.1 F 10/12/23 14:23 Heart Rate 82 10/12/23 14:23 Respiratory Rate 15 10/12/23 14:23 Blood Pressure 123/61 10/12/23 14:23 - Procedures OB Procedure Performed: NST Diagnosis/Indication for NST: Decreased movement NST Procedure: NST Procedure Start Time 13:03 Stop Time 14:18 Service Date of procedure: 10/12/23 (Read 10/12/23) - Plan Plan: Patient is a 28-year-old -0-0-2 at 30 weeks 6 days here for decreased movement.. She has no leaking or bleeding. She denies headache, right upper quadrant pain, changes in vision. She has felt baby move since arrival. FHT: 150 bpm baseline, moderate variability, no decelerations. Nonreactive NST Ultrasound: BPP 8/8 Assessment and plan Decreased movement -Nonreactive NST but BPP 8 out of 8, Discussed that this is very reassuring, especially with increased movement. IUGR -Continue scheduled care.
--- NOTE | 2023-10-12 17:37 | Ultrasound Report ---
PROCEDURE: OB Biophysical Profile INDICATIONS: IUGR, nonreactive nst at 31 weeks OUTSIDE/PRIOR DATING DATA: Last menstrual period (LMP): Unknown. LMP-based estimated date of delivery (MARIANNE): Unknown. First dating scan (date and location): 06/07/2023. Estimated date of delivery (MARIANNE) from first dating scan: 12/15/2023. The below data below was generated using the working MARIANNE of 12/15/2023 TECHNIQUE: Real-time scanning was performed of the fetus, with image documentation and biometric nicol surements. Biophysical profile was also obtained. Endovaginal scanning: None COMPARISON: None. FINDINGS: General: A single living intrauterine gestation is present. Presentation: Vertex Placenta: Placental position is posterior, without previa. Amniotic fluid index: 15.7 cm, normal for gestational age. heart rate: 135 beats per minute. Maternal cervical canal: 5.2 cm long; normal length is 2.5 cm or more. Estimated gestational age from initial scan: 30 week 6 day Incidental nuchal cord noted x1 Biophysical profile: Tone: 2 points. Movement: 2 points. Respiration: 2 points. Largest pocket of fluid: 2 points. IMPRESSION: 1. Single live intrauterine consistent with 30 week 6 day gestation. Prior 2. Biophysical profile score 8 out of 8 Reviewed by: Kamran Michaud MD on 10/12/2023 4:36 PM [place] Approved by: Kamran Michaud MD on 10/12/2023 4:36 PM AKST Station ID: [id number]
== END 2023-10-12 17:20 | disposition home or self-care (01) ==
LOC: WFO 14:07 → FBP 14:08 → WFO 17:20
PROVIDERS: ATTEND Obstetrics & Gynecology
DX: O36.8130 Decreased fetal movements, third trimester, not applicable or unspecified (principal); O36.5930 Maternal care for other known or suspected poor fetal growth, third trimester, not applicable or unspecified; Z3A.30 30 weeks gestation of pregnancy
CPT/HCPCS: 59025; 99215

== ENCOUNTER 2023-10-20 08:00 | Outpatient (CLI) | payer MEDICAID | END 2023-10-20 08:01 | disposition home or self-care (01) | LOC: LAB.WC 08:00 | PROVIDERS: ATTEND Obstetrics & Gynecology | DX: O09.893 Supervision of other high risk pregnancies, third trimester (principal); O36.5930 Maternal care for other known or suspected poor fetal growth, third trimester, not applicable or unspecified | CPT/HCPCS: 81599 ==

== ENCOUNTER 2023-10-20 12:44 | Outpatient (CLI) | payer MEDICAID ==
[2023-10-21 07:10] LABS: CYTOMEGALOVIRUS (CMV) AB IGM <30.0 AU/mL (0.0-29.9)
== END 2023-10-20 12:45 | disposition home or self-care (01) ==
LOC: LAB 12:44
PROVIDERS: ATTEND Obstetrics & Gynecology
DX: O09.893 Supervision of other high risk pregnancies, third trimester (principal); O36.5930 Maternal care for other known or suspected poor fetal growth, third trimester, not applicable or unspecified
CPT/HCPCS: 36415; 82239; 82728; 86644; 86645

== ENCOUNTER 2023-10-20 13:07 | Outpatient (CLI) | payer MEDICAID ==
[2023-10-20 13:26] VITALS: BP 103/50
--- NOTE | 2023-10-20 15:08 | PROCEDURE REPORT ---
- HPI Current EDU 12/16/23 Gestation 31 Weeks and 6 Days 3 Para 2 Vital Signs Temperature 98.8 F 10/20/23 13:16 Heart Rate 85 10/20/23 13:16 Respiratory Rate 17 10/20/23 13:16 Blood Pressure 103/50 L 10/20/23 13:16 Temperature 98.8 F 10/20/23 13:16 Heart Rate 85 10/20/23 13:16 Respiratory Rate 17 10/20/23 13:16 Blood Pressure 103/50 L 10/20/23 13:16 O2 Saturation If not protocol: Oxygen Flow, liters/minute - NST Procedure NST Procedure Start Date 10/20/23 Start Time 13:15 Stop Time 14:35 Vibroacoustic Stimulation Used Yes Patient States Movement Yes - Results and Plan Plan: Patient is a 28-year-old -0-0-2 at 31 weeks 6 days gestation here for NST. NST Performed 09/21/2023 10/20/2023 NST Read [Date] FHT: 135 bpm baseline, moderate variability, accelerations present, no decelerations. Reactive NST [place]: Quiescent Diagnosis 31 weeks gestation IUGR Continue with scheduled OB care
== END 2023-10-20 14:38 | disposition home or self-care (01) ==
LOC: WFO 13:07 → FBP 13:09 → WFO 14:38
PROVIDERS: ATTEND Obstetrics & Gynecology
DX: O36.5930 Maternal care for other known or suspected poor fetal growth, third trimester, not applicable or unspecified (principal); O09.893 Supervision of other high risk pregnancies, third trimester; Z3A.31 31 weeks gestation of pregnancy
CPT/HCPCS: 36415; 59025; 82239; 82728; 86644; 86645

== ENCOUNTER 2023-10-27 12:36 | Outpatient (CLI) | payer MEDICAID ==
[2023-10-27 13:00] VITALS: BP 111/61
--- NOTE | 2023-10-27 15:42 | PROCEDURE REPORT ---
- HPI Diagnosis/Indication for NST: Intrauterine growth restriction Current EDU 12/15/23 Gestation 33 Weeks and 0 Days 3 Para 2 Vital Signs Temperature 98.6 F 10/27/23 12:50 Heart Rate 76 10/27/23 12:50 Respiratory Rate 16 10/27/23 12:50 Blood Pressure 111/61 10/27/23 12:50 Temperature 98.6 F 10/27/23 12:50 Heart Rate 76 10/27/23 12:50 Respiratory Rate 16 10/27/23 12:50 Blood Pressure 111/61 10/27/23 12:50 O2 Saturation If not protocol: Oxygen Flow, liters/minute - NST Procedure NST Procedure Start Date 10/27/23 Start Time 12:55 Stop Time 13:32 Vibroacoustic Stimulation Used Yes Patient States Movement Yes - Results and Plan Findings/Impression: Reactive for of 32 weeks gestation or more. NST tracing contains at least two heart rate accelerations that are at least 15 beats per minute above the baseline rate and lasting at least 15 seconds from onset to return to baseline within a twenty minute period. The acels came off the monitor a bit, but we did get one that was very clear and many others that were off a bit. Plan: care as scheduled.
== END 2023-10-27 14:15 | disposition home or self-care (01) ==
LOC: WFO 12:36 → FBP 12:39 → WFO 14:15
PROVIDERS: ATTEND Obstetrics & Gynecology
DX: O36.5930 Maternal care for other known or suspected poor fetal growth, third trimester, not applicable or unspecified (principal); Z3A.33 33 weeks gestation of pregnancy
CPT/HCPCS: 59025

== ENCOUNTER 2023-11-03 12:59 | Outpatient (CLI) | payer MEDICAID ==
[2023-11-03 13:23] VITALS: BP 113/58
--- NOTE | 2023-11-03 23:26 | PROCEDURE REPORT ---
- HPI Diagnosis/Indication for NST: Intrauterine growth restriction Current EDU 12/16/23 Gestation 33 Weeks and 6 Days 3 Para 2 Vital Signs Temperature 98.2 F 11/03/23 13:11 Heart Rate 81 11/03/23 13:11 Respiratory Rate 17 11/03/23 13:11 Blood Pressure 113/58 L 11/03/23 13:11 Temperature 98.1 F 11/03/23 13:11 Heart Rate 79 11/03/23 13:11 Respiratory Rate 17 11/03/23 13:11 Blood Pressure 113/58 L 11/03/23 13:11 O2 Saturation If not protocol: Oxygen Flow, liters/minute - NST Procedure NST Procedure Start Date 11/03/23 Start Time 13:08 Stop Time 13:43 Vibroacoustic Stimulation Used No Patient States Movement Yes - Results and Plan Findings/Impression: Reactive for of 32 weeks gestation or more. NST tracing contains at least two heart rate accelerations that are at least 15 beats per minute above the baseline rate and lasting at least 15 seconds from onset to return to baseline within a twenty minute period. Plan: as scheduled
== END 2023-11-03 13:50 | disposition home or self-care (01) ==
LOC: WFO 12:59 → FBP 13:00 → WFO 13:50
PROVIDERS: ATTEND Obstetrics & Gynecology
DX: O36.5930 Maternal care for other known or suspected poor fetal growth, third trimester, not applicable or unspecified (principal); Z3A.33 33 weeks gestation of pregnancy
CPT/HCPCS: 59025

== ENCOUNTER 2023-11-10 12:41 | Outpatient (CLI) | payer MEDICAID ==
[2023-11-10 15:16] VITALS: BP 112/75
--- NOTE | 2023-11-10 15:33 | Ultrasound Report ---
PROCEDURE: OB Biophysical Profile INDICATIONS: IUGR non reactive NST OUTSIDE/PRIOR DATING DATA: Last menstrual period (LMP): None. LMP-based estimated date of delivery (MARIANNE): Unknown. First dating scan (date and location): 06/07/2023. Estimated date of delivery (MARIANNE) from first dating scan: 12/15/2023. The below data below was generated using the ultrasound MARIANNE of 12/15/2023 TECHNIQUE: Real-time scanning was performed of the fetus, with image documentation and biometric nicol surements. Biophysical profile was also obtained. Endovaginal scanning: Not performed COMPARISON: 10/12/2023 FINDINGS: General: A single living intrauterine gestation is present. Presentation: Vertex Placenta: Placental position is posterior, without previa. Amniotic fluid index: 12.7 cm, normal for gestational age. heart rate: 150 beats per minute. Maternal cervical canal: 4.4 cm long; normal length is 2.5 cm or more. Estimated gestational age from initial scan: 35 weeks 0 days. Biophysical profile: Tone: 2 points. Movement: 2 points. Respiration: 2 points. Largest pocket of fluid: 2 points. IMPRESSION: Single live intrauterine consistent with 35 weeks and 0 days. Biophysical profile is within normal limits. Reviewed by: Maksim Lopez MD on 11/10/2023 3:31 PM PDT Approved by: Maksim Lopez MD on 11/10/2023 3:31 PM PDT Station ID: [id number]
--- NOTE | 2023-11-10 18:53 | PROCEDURE REPORT ---
- HPI Diagnosis/Indication for NST: Intrauterine growth restriction Current EDU 12/15/23 Gestation 35 Weeks and 0 Days 3 Para 2 Vital Signs Temperature 98.3 F 11/10/23 13:00 Heart Rate 93 11/10/23 13:00 Respiratory Rate 18 11/10/23 13:00 Blood Pressure 113/64 11/10/23 13:00 Temperature 97.9 F 11/10/23 15:14 Heart Rate 83 11/10/23 15:14 Respiratory Rate 18 11/10/23 13:00 Blood Pressure 112/75 11/10/23 15:14 O2 Saturation If not protocol: Oxygen Flow, liters/minute - NST Procedure NST Procedure Start Date 11/10/23 Start Time 13:10 Stop Time 14:30 Vibroacoustic Stimulation Used Yes Patient States Movement Yes - Results and Plan Plan: Patient is a 28-year-old -0-0-2 at 35 weeks 0 days gestation here for NST. Did have an episode of vomiting after eating clam chowder, but feeling better now. No fever, chills, sick contacts. No diarrhea. No abdominal pain. Physical Exam Constitutional: alert, no acute distress, well hydrated, well developed, well nourished, appropriate dress. Cardiovascular: Regular rate and rhythm. Respiratory: no respiratory distress. Abdomen: nondistended, nontender, no guarding. Psych: affect and mood appropriate, normal interaction, good eye contact. NST Performed 11/10/2023 NST Read 11/10/2023 FHT: 140 bpm baseline, moderate variability, accelerations absent, no decelerations. Nonreactive NST [place]: Quiescent Diagnosis 35 weeks gestation IUGR Nonreactive NST -Patient had BPP showing 8/10 due to nonreactive NST. Overall reassuring. Should follow-up with routine care. -Did have some vomiting after lunch. Feels better now. Continue with scheduled OB care
== END 2023-11-10 15:19 | disposition home or self-care (01) ==
LOC: WFO 12:41 → FBP 12:45 → WFO 15:19
PROVIDERS: ATTEND Obstetrics & Gynecology
DX: O36.5930 Maternal care for other known or suspected poor fetal growth, third trimester, not applicable or unspecified (principal); Z3A.35 35 weeks gestation of pregnancy; O21.2 Late vomiting of pregnancy
CPT/HCPCS: 59025; 99215

== ENCOUNTER 2023-11-15 08:00 | Outpatient (CLI) | payer MEDICAID | END 2023-11-15 23:59 | disposition home or self-care (01) | LOC: LAB.WC 08:00 | PROVIDERS: ATTEND Obstetrics & Gynecology | DX: Z36.85 Encounter for antenatal screening for Streptococcus B (principal) | CPT/HCPCS: 87797 ==

== ENCOUNTER 2023-11-17 12:58 | Outpatient (CLI) | payer MEDICAID ==
[2023-11-17 13:18] VITALS: BP 124/67
--- NOTE | 2023-11-17 14:24 | PROCEDURE REPORT ---
- HPI Diagnosis/Indication for NST: Intrauterine growth restriction Vital Signs Temperature 98.2 F 11/17/23 13:11 Heart Rate 76 11/17/23 13:11 Respiratory Rate 16 11/17/23 13:11 Blood Pressure 124/67 11/17/23 13:11 Temperature 98.2 F 11/17/23 13:11 Heart Rate 76 11/17/23 13:11 Respiratory Rate 16 11/17/23 13:11 Blood Pressure 124/67 11/17/23 13:11 O2 Saturation If not protocol: Oxygen Flow, liters/minute - NST Procedure NST Procedure Start Time 13:10 Stop Time 14:30 - Results and Plan Plan: Patient is a 28-year-old -0-0-2 at 36 weeks gestation here for NST. NST Performed 11/17/2023 NST Read 11/17/2023 FHT: 135 bpm baseline, moderate variability, accelerations present, 1 variable deceleration. Reactive NST [place]: Quiescent Diagnosis 36 weeks gestation IUGR Patient was examined for extended monitoring and no further decelerations. Did have a BPP performed which was 03/21 with an TACHO of 13.6. Continue with scheduled OB care
== END 2023-11-17 17:30 | disposition home or self-care (01) ==
LOC: WFO 12:58 → FBP 12:59 → WFO 17:30
PROVIDERS: ATTEND Obstetrics & Gynecology
DX: O36.5930 Maternal care for other known or suspected poor fetal growth, third trimester, not applicable or unspecified (principal); Z3A.36 36 weeks gestation of pregnancy
CPT/HCPCS: 59025; 99215

== ENCOUNTER 2023-11-24 12:52 | Outpatient (CLI) | payer MEDICAID ==
[2023-11-24 13:12] VITALS: BP 109/69
--- NOTE | 2023-11-25 10:01 | PROCEDURE REPORT ---
- HPI Current EDU 12/15/23 Gestation 37 Weeks and 0 Days 3 Para 2 Vital Signs Temperature 98.6 F 11/24/23 12:59 Heart Rate 87 11/24/23 12:59 Respiratory Rate 17 11/24/23 12:59 Blood Pressure 109/69 11/24/23 12:59 Temperature 98.6 F 11/24/23 12:59 Heart Rate 87 11/24/23 12:59 Respiratory Rate 17 11/24/23 12:59 Blood Pressure 109/69 11/24/23 12:59 O2 Saturation If not protocol: Oxygen Flow, liters/minute - NST Procedure NST Procedure Start Date 11/24/23 Start Time 13:04 Stop Time 14:05 Vibroacoustic Stimulation Used No Patient States Movement Yes - Results and Plan Plan: Patient is a 28-year-old -0-0-2 at 36 weeks 4 days gestation here for NST. NST Performed 11/24/2023 NST Read 11/24/2023 FHT: 135 bpm baseline, moderate variability, accelerations present, no decelerations. Reactive NST [place]: Quiescent Diagnosis 36 weeks gestation IUGR Continue with scheduled OB care
== END 2023-11-24 14:15 | disposition home or self-care (01) ==
LOC: WFO 12:52 → FBP 12:58 → WFO 14:15
PROVIDERS: ATTEND Obstetrics & Gynecology
DX: O36.5930 Maternal care for other known or suspected poor fetal growth, third trimester, not applicable or unspecified (principal); Z3A.37 37 weeks gestation of pregnancy
CPT/HCPCS: 59025

== ENCOUNTER 2024-03-21 08:00 | Outpatient (CLI) | payer MEDICAID ==
[2024-03-21 12:44] LABS: INFLUENZA A- RESP PCR PANEL NOT DETECTED; INFLUENZA B - RESP PCR PANEL NOT DETECTED; RSV- RESP PCR PANEL NOT DETECTED; SARS-CoV-2 -RESP PCR PANEL NOT DETECTED
== END 2024-03-21 23:59 | disposition home or self-care (01) ==
LOC: LAB.WCP 08:00
PROVIDERS: ATTEND Physician Assistant
DX: Z20.822 Contact with and (suspected) exposure to COVID-19 (principal); J30.2 Other seasonal allergic rhinitis
CPT/HCPCS: 87637

== ENCOUNTER 2024-04-24 17:22 | Emergency (ER) | payer MEDICAID ==
[2024-04-24 17:41] VITALS: BP 131/68; O2SAT 99
[2024-04-24 17:50] LABS: RAPID STREP SCREEN Negative (Negative)
--- NOTE | 2024-04-24 18:04 | ED Physician Documentation ---
PD HPI URI - Stated complaint Stated Complaint: THROAT PX - Chief complaint Chief Complaint: Heent - History obtained from History obtained from: Patient - Additional information Additional information: 29-year-old female presents to the emergency department with 2 days of rhinorrhea, cough and congestion along with a sore/scratchy throat. She does vape. Her was diagnosed with rhinovirus 2 days ago. Has not taken any decongestants. She is not , breast-feeding or trying to become . Worse with eating and drinking, nothing makes it better. The cough is mild and dry. No vomiting. No abdominal pain. Review of Systems Constitutional: denies: Fever, Chills Cardiac: denies: Chest pain / pressure Respiratory: reports: Cough. 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 : None HEENT: None Psych: Anxiety Musculoskeletal: None Derm: None - Past Surgical History Past Surgical History: Yes /CALLIOPE PLAYER: section - Present Medications Home Medications: Ambulatory Orders Medication Instructions Recorded Confirmed Cetirizine HCl/Pseudoephedrine 1 tab PO BID PRN #20 tab 04/24/24 [Zyrtec-D ER 5 mg-120 mg Tablet] - Allergies Allergies/Adverse Reactions: Allergies Allergy/AdvReac Type Severity Reaction Status Date / Time No Known Drug Allergies Allergy Verified 04/24/24 17:26 - Social History Does the pt smoke?: No Smoking Status: Former smoker Does the pt drink ETOH?: No Does the pt have substance abuse?: No - Immunizations Immunizations are current?: Yes - POLST Patient has POLST: No PD ED PE NORMAL - Vitals Vital signs reviewed: Yes - General General: Alert and oriented X 3, No acute distress - HEENT HEENT: PERRL, Ears normal, Moist mucous membranes, Pharynx benign - Neck Neck: Supple, no meningeal sign, No adenopathy - Cardiac Cardiac: RRR, Strong equal pulses - Respiratory Respiratory: No respiratory distress, Clear bilaterally - Abdomen Abdomen: Soft, Non tender, Non distended - Derm Derm: Warm and dry - Neuro Neuro: Alert and oriented X 3 - Psych Psych: Normal mood, Normal affect Results - Vitals Vitals: Vital Signs - 24 hr 04/24/24 04/24/24 17:26 18:35 Temperature 36.8 C Heart Rate 85 Respiratory 16 16 Rate Blood Pressure 131/68 H O2 Saturation 99 Oxygen O2 Source Room air - Labs Labs: Laboratory Tests 04/24/24 04/24/24 12:30 18:25 Nasal Adenovirus (PCR) NOT DETECTED Nasal B. parapertussis DNA (PCR) NOT DETECTED Nasal Coronavir 229E PCR NOT DETECTED Nasal Coronavir HKU1 PCR NOT DETECTED Nasal Coronavir NL63 PCR NOT DETECTED Nasal Coronavir OC43 PCR NOT DETECTED Nasal Enterovir/Rhinovir PCR DETECTED A Nasal Influenza B PCR NOT DETECTED Nasal Influenza A PCR NOT DETECTED Nasal Parainfluen 1 PCR NOT DETECTED Nasal Parainfluen 2 PCR NOT DETECTED Nasal Parainfluen 3 PCR NOT DETECTED Nasal Parainfluen 4 PCR NOT DETECTED Nasal RSV (PCR) NOT DETECTED Nasal B.pertussis DNA PCR NOT DETECTED Nasal C.pneumoniae (PCR) NOT DETECTED Charlie Human Metapneumo PCR NOT DETECTED Nasal M.pneumoniae (PCR) NOT DETECTED Nasal SARS-CoV-2 (PCR) NOT DETECTED Group A Strep Rapid Negative PD Medical Decision Making - ED course Complexity details: considered differential, d/w patient ED course: Patient is very well-appearing, nontoxic. Afebrile. No hypoxia. No respiratory distress. Rapid strep test is negative. Suspect that her symptoms are secondary to rhinovirus as her child is sick with the same. Patient is adamant about having a respiratory panel performed, explained that this will not change her management, she insist on having this performed anyway, therefore a nasal swab was performed. It is positive for rhinovirus. Will continue supportive care at home and have her follow-up with her doctor. Patient counseled regarding signs and symptoms for which I believe and urgent re- evaluation would be necessary. Patient with good understanding of and agreement to plan and is comfortable going home at this time This document was made in part using voice recognition software. While efforts are made to proofread this document, sound alike and grammatical errors may occur. Departure - Departure Disposition: 01 Home, Self Care Clinical Impression: Viral URI Condition: Good Instructions: ED Viral Syndrome Follow-Up: Greer De Jesus PA-C [Primary Care Provider] - Prescriptions: Cetirizine HCl/Pseudoephedrine [Zyrtec-D ER 5 mg-120 mg Tablet] 1 tab PO BID PRN #20 tab PRN Reason: nasal congestion Comments: As we discussed your rapid strep test is negative. Your symptoms are more consistent with rhinovirus. A respiratory swab was performed, you can check the results of this on the patient portal. We have sent decongestants to the pharmacy for you. This will help to dry up your nose and help with the pain in your throat. You can use Motrin or Tylenol as well. You also have a mild amount of fluid in your left ear but does not appear infected, this should resolve on its own as the decongestants work. Forms: PCP List Discharge Date/Time: 04/24/24 18:37
[2024-04-24 19:21] LABS: B. PARAPERTUSSIS- RESP PCR PAN NOT DETECTED; B. PERTUSSIS- RESP PCR PANEL NOT DETECTED; C. PNEUMONIAE- RESP PCR PANEL NOT DETECTED; CORONAVIRUS 229E-RESP PCR NOT DETECTED; CORONAVIRUS HKU1-RESP PCR NOT DETECTED; CORONAVIRUS NL63-RESP PCR NOT DETECTED; CORONAVIRUS OC43-RESP PCR NOT DETECTED; HUMAN METAPNEUMOVIRUS NOT DETECTED; INFLUENZA A- RESP PCR PANEL NOT DETECTED; INFLUENZA B - RESP PCR PANEL NOT DETECTED; M. PNEUMONIAE- RESP PCR PANEL NOT DETECTED; PARAINFLUENZA VIRUS 1 NOT DETECTED; PARAINFLUENZA VIRUS 2 NOT DETECTED; PARAINFLUENZA VIRUS 3 NOT DETECTED; PARAINFLUENZA VIRUS 4 NOT DETECTED; RHINOVIRUS/ENTEROVIRUS DETECTED; RSV- RESP PCR PANEL NOT DETECTED; SARS-CoV-2 -RESP PCR PANEL NOT DETECTED
== END 2024-04-24 18:37 | disposition home or self-care (01) ==
LOC: ED 17:22
DX: J06.9 Acute upper respiratory infection, unspecified (principal); Z87.891 Personal history of nicotine dependence
CPT/HCPCS: 87070; 87430; 87633; 99282; 99283